=== PATIENT | male | born 1990 | race Two or more races ===

== ENCOUNTER → 2020-01-09 | Outpatient (CLI) | payer OTHER ==
--- NOTE | 2020-01-09 11:57 | RAD ---
Study: CT abdomen/pelvis without intravenous contrast Indication: History of kidney stones. Right-sided abdominal pain for the past 3 days. Hematuria. Comparison: None. Technique: Helical CT imaging performed of the abdomen and pelvis without the use of intravenous contrast. Sagittal and coronal reformats were obtained. One or more of the following individualized dose reduction techniques were utilized for this examination: 1. Automated exposure control 2. Adjustment of the mA and/or kV according to patient size 3. Use of iterative reconstruction technique. Findings: Inherently limited evaluation without intravenous contrast. Chest: Within normal limits. Liver: Hepatic steatosis. Gallbladder/Biliary Tree: Unremarkable. Pancreas: Unremarkable. Spleen: Within normal limits for size. Adrenal Glands: Unremarkable. Kidneys/Ureters/Bladder: Multifocal renal cortical thinning on the left typical of scarring. Several nonobstructing intrarenal stones on the left. Single prominent intrarenal stone on the right measuring up to 1.1 cm. The right kidney is normal in size and configuration. No collecting system dilatation. Unremarkable urinary bladder. Reproductive Organs: Unremarkable. Colon: Unremarkable. Appendix: Unremarkable. Small Bowel: Unremarkable. Stomach: Unremarkable. Vasculature: Normal aortic caliber. Lymph Nodes: No lymphadenopathy based on size criteria. Peritoneum and Body Wall: No free fluid or air. Unremarkable body wall soft tissues. Bones: No acute or aggressive osseous process. Miscellaneous: None. Impression: 1. Several small nonobstructing intrarenal stones on the left and a single prominent intrarenal stone on the right. The right nephrolithiasis measures up to 1.1 cm. No hydroureteronephrosis bilaterally and no stone is seen within either ureter or within the urinary bladder. 2. Smaller size of the left kidney relative to the right with areas of cortical thinning typical of scarring. 3. Hepatic steatosis. Electronically signed by: NANCY ROBLEDO MD (01/09/2020 11:54 AM) [id number]
== END | disposition home or self-care (01) ==
LOC: CT 11:33
PROVIDERS: ATTEND Internal Medicine
DX: K76.0 Fatty (change of) liver, not elsewhere classified (principal); N20.0 Calculus of kidney
CPT/HCPCS: 74176